=== PATIENT | female | born 1990 | race African-American/Black ===

== ENCOUNTER 2017-01-31 23:15 | Inpatient (IN) ==
[2017-01-31] MEDS ORDERED: ONDANSETRON 4 MG/2 ML VIAL IV PRN (23:32)
[2017-01-31] MEDS ORDERED: MEPERIDINE 50 MG/1 ML VIAL IV PRN (23:32)
[2017-01-31] MEDS ORDERED: MAGNESIUM SULF RIDER 100 ML IV ONE ×2 (23:34→23:37)
[2017-01-31] MEDS ORDERED: hydrALAZINE 20 MG/1 ML VIAL IV ONE ×2 (23:34→23:45)
[2017-01-31] MEDS: LACTATED RINGERS 1,000 ML IV SCH (23:42)
[2017-01-31] MEDS ORDERED: MAGNESIUM SULF DRIP 40 GM/1,000 ML ML IV SCH (23:45)
[2017-02-01 00:04] LABS: Basophils % 0.2 % (0.0-0.8); Eosinophils % 0.3 % (0.00-10.9); Hematocrit 28.1 VOL% (35.7-47.0); Hemoglobin 9.2 GM/DL (12.0-16.0); Immature Granulocytes % 2.4 %; Immature Granulocytes Absolute 0.26 #; Lymphocytes # 1.5 10*3/uL (1.4-4.0); Lymphocytes % 13.7 % (21.3-54.2); Mean Corpuscular HGB Conc 32.7 GM/DL (32-36); Mean Corpuscular Hemoglobin 27 PG (27-34); Mean Corpuscular Volume 83.4 FL (87-102); Monocytes % 9.5 % (1.7-12.7); NRBC # 0.05 10*3/uL; Neutrophils % 73.9 % (38.7-73.9); Platelet Count 154 T/CUMM (130-400); Red Blood Count 3.37 MC/CUMM (3.8-5.5); White Blood Count 10.8 T/CUMM (4-12)
[2017-02-01 00:15] LABS: INR 0.9; PT Patient Result 9.5 SECS; Partial Thromboplastin Time 27.1 SECS (0-40)
[2017-02-01 00:50] LABS: Albumin 2.5 G/DL (3.4-5.0); Bilirubin,Total 0.8 MG/DL (0.2-1.0); Calcium 8.2 MG/DL (8.5-10.1); Osmolality,Calculated 274.5 MOS/KG (273-304); Potassium 3.6 MMOL/L (3.5-5.1); Total Protein 5.9 G/DL (6.4-8.3); Uric Acid 3.9 MG/DL (2.6-6.0)
[2017-02-01] MEDS ORDERED: hydrALAZINE 20 MG/1 ML VIAL IV ONE (01:05)
[2017-02-01 01:09] LABS: Apearance,Urine CLEAR (Clear); Bilirubin,Urine Negative (Negative); Blood, Urine Negative (Negative); Glucose,Urine (UA) Negative (Negative); Ketones,Urine 20 mg/dL (Negative); Mucus,Urine Occasional /LPF (Occasional); Nitrite,Urine Negative (Negative); Protein,Urine 100 MG/DL; Squamous Epithelial Cell,Urine Occasional /HPF (0-10); Urine Color Yellow (Yellow); Urine Specific Gravity 1.009 (1.001-1.035); Urine Urobilinogen < 2.0 EU/DL (0.2-1.0); WBC,Urine <1 /HPF (0-6)
[2017-02-01 02:08] LABS: Barbiturates Screen,Urine Negative (Negative); Benzodiazepines Screen,Urine Negative (Negative); Cannabinoid Screen,Urine Negative (Negative); Opiate Screen,Urine Negative (Negative); Phencyclidine Screen,Urine Negative (Negative)
[2017-02-01] MEDS ORDERED: ACETAMINOPHEN 325 MG TABLET PO ONE (05:56)
[2017-02-01] MEDS ORDERED: CLINDAMYCIN INJ 900 MG in PREMIX 1 EACH IV ONE (07:34)
[2017-02-01] MEDS ORDERED: FAMOTIDINE 20 MG/2 ML VIAL IV ONE (07:34)
[2017-02-01] MEDS ORDERED: CITRIC ACID/SODIUM CITRATE 30 ML UDCUP PO ONE (07:34)
[2017-02-01] MEDS ORDERED: OXYTOCIN 10 UNIT/ML VIAL IM PRN (07:36)
[2017-02-01] MEDS ORDERED: OXYTOCIN/LR 30 UNIT/1,000 ML BAG IV PRN (07:36)
[2017-02-01 08:00] LABS: Basophils % 0.1 % (0.0-0.8); Eosinophils % 0.2 % (0.00-10.9); Hematocrit 29.1 VOL% (35.7-47.0); Hemoglobin 9.5 GM/DL (12.0-16.0); Immature Granulocytes % 3.9 %; Immature Granulocytes Absolute 0.43 #; Lymphocytes # 1.4 10*3/uL (1.4-4.0); Lymphocytes % 12.7 % (21.3-54.2); Mean Corpuscular HGB Conc 32.6 GM/DL (32-36); Mean Corpuscular Hemoglobin 27 PG (27-34); Mean Corpuscular Volume 82.9 FL (87-102); Mean Platelet Volume 11.1 FL (9.6-12.0); Monocytes # 0.8 10*3/uL (0.11-0.8); Monocytes % 7.1 % (1.7-12.7); NRBC # 0.03 10*3/uL; Neutrophils # 8.4 10*3/uL (1.4-7.4); Platelet Count 152 T/CUMM (130-400); Red Blood Count 3.51 MC/CUMM (3.8-5.5); Red Cell Distribution Width 14.2 % (9.3-17.3); White Blood Count 11.1 T/CUMM (4-12)
[2017-02-01 08:10] LABS: INR 0.9; PT Patient Result 9.4 SECS
[2017-02-01 08:31] LABS: Albumin 2.5 G/DL (3.4-5.0); Bilirubin,Total 0.8 MG/DL (0.2-1.0); Calcium 7.2 MG/DL (8.5-10.1); Osmolality,Calculated 273.5 MOS/KG (273-304); Potassium 3.6 MMOL/L (3.5-5.1); Total Protein 5.9 G/DL (6.4-8.3)
[2017-02-01] MEDS ORDERED: diphenhydrAMINE 50 MG/1 ML VIAL ONE (10:01)
[2017-02-01] MEDS ORDERED: fentaNYL 100 MCG/2 ML VIAL ONE (10:11)
[2017-02-01] MEDS ORDERED: MORPHINE 10 MG/10 ML VIAL ONE (10:12)
--- NOTE | 2017-02-01 10:15 | Anesthesia Post-Op ---
Anesthesia Post OP - Post Ansesthetic Evaluation Patient seen in post op: Yes Resp: within normal limits CV: within normal limits Mental: within normal limits Temp: within normal limits [id number]: within normal limits Nausea and Vomiting: within normal limits Pain: within normal limits Other:: pt itching , prior to leaving OR, given phenergan 25 mg iv slowly, after 10 minutes benadryl 50mg iv
[2017-02-01 10:23] LABS: Apearance,Urine CLEAR (Clear); Bacteria,Urine Occasional /HPF (Few); Bilirubin,Urine Negative (Negative); Blood, Urine Negative (Negative); Glucose,Urine (UA) Negative (Negative); Hyaline Casts,Urine 1 /LPF (0-3); Ketones,Urine 80 mg/dL (Negative); Mucus,Urine Occasional /LPF (Occasional); Nitrite,Urine Negative (Negative); Protein,Urine 100 MG/DL; RBC,Urine 1 /HPF (0-4); Squamous Epithelial Cell,Urine Occasional /HPF (0-10); Urine Color Yellow (Yellow); Urine Specific Gravity 1.021 (1.001-1.035); Urine Urobilinogen < 2.0 EU/DL (0.2-1.0); WBC,Urine 1 /HPF (0-6)
[2017-02-01 10:25] LABS: Cord Arterial Blood HCO3 19.5 MMOL/L
[2017-02-01] MEDS ORDERED: BUTORPHANOL 1 MG/ML VIAL IV ONE (10:27)
[2017-02-01 10:29] LABS: Cord Venous Blood PCO2 46.2 MMHG; Cord Venous Blood PO2 31.3
--- NOTE | 2017-02-01 10:33 | OB/GYN History & Physical ---
History of Present Illness Chief complaint: Severe preeclampsia, EDC is 03/02/2017 History of present illness: Ms. Wood is a 26 year old female Patient admitted with blood pressures 170s over 110, headaches, right upper quadrant pain, severe pelvic pain and discomfort. Light of these findings patient was initially started on the IV magnesium sulfate, received IV Apresoline, and IV fluids and also analgesic. Patient blood pressure still remain slightly elevated throughout the evening so this a.m. she was prepared for primary section secondary to severe preeclampsia. Fetus has been active, patient states the possibility of ruptured membranes. Small amount of fluid was noted to be leaking as well as patient was 2 cm dilated. The risks were thoroughly discussed regarding the need for a primary section she is in full agreement she also desired to have her tube ligated as well. Home Medications Medication Instructions Recorded Confirmed Type Multivitamin () [ 1 tablet PO DAILY 10/17/16 02/01/17 History Vitamin] Methyldopa [Aldomet] 1 tablet PO TID 01/13/17 02/01/17 History Allergies Allergy/AdvReac Type Severity Reaction Status Date / Time Penicillins Allergy Severe Swelling Verified 01/13/17 14:19 of Lip/Tongue/Throat Medical,Surgical,& Family Hx - Medical History Cardio: History of: Hypertension Neurology: History of: Seizures Genitourinary: History of: Recurring Urinary Tract Infections Reproductive: No history of: Ectopic , Complication - Surgical History Reproductive Surgeries: Patient denies;: Section - Family History Family History: Reports;: Family Diabetes (MGM), Family Heart Disease (MOM), Family Hypertension (MOM, SISTER) Denies;: Family Anesthesia Reaction, Family Cancer, Family Hematology, Family Psychiatric Problems, Family Stroke, Additional Family History - Social History Smoking Status: Never smoker Frequency of Alcohol Use: None Type of Drug Use: None 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 - Constitutional Vitals: Vital Signs Temp Pulse Resp BP BP Pulse Ox 02/01/17 08:00 97.5 F L 101 H 24 135/100 135/100 02/01/17 04:00 97.0 F L 101 H 20 142/79 100 02/01/17 00:00 97.8 F 108 H 20 153/104 General appearance: mild distress - Antepartum / Post Antepartum Exam Cervix - Dilatation: 2 cm - Head Head exam: Present: normal inspection - Eye Eye exam: Present: other (Periorbital edema) Pupils: Present: ELVER - ENT ENT exam: Present: normal exam - Neck Neck exam: Present: normal inspection - Respiratory Respiratory exam: Present: clear to auscultation bilaterally - Breast Breasts: as per HPI Menstruation: as per HPI - Cardiovascular Cardiovascular exam: Present: regular rate and rhythm - GI/Abdominal GI/Abdominal exam: Present: normal bowel sounds, soft, other (Palpable uterine contractions) - Extremities Exam Extremities exam: Present: edema - Back Exam Back exam: Present: normal inspection - Neurological Exam Neurological exam: Present: alert, oriented X3 - Psychiatric Psychiatric exam: Present: agitated - Skin Skin exam: Present: normal color, other (Generalized edema) Assessment and Plan (1) Prematurity of fetus Status: Acute Current Visit: Yes (2) Severe pre-eclampsia Status: Acute Assessment and plan: Primary section and bilateral tubal ligation secondary to severe preeclampsia Current Visit: Yes Results - Labs CBC & BMP: 02/01/17 07:53 02/01/17 07:53
--- NOTE | 2017-02-01 10:37 | Operative Note ---
Date of procedure: 02/01/17 Procedure: Preoperative diagnosis: Severe preeclampsia, prematurity, elective sterilization Postoperative diagnosis: Same Anesthesia:[] Regional Estimated blood loss: [] Less than 400 Surgeon: Dr. Esquivel Findings: [] Delivery of a female infant delivery time was at 0938, weight was 5 lbs. 14 oz., Apgars was 9 at 1 minute 9 at 5 minutes, Complications: None Procedure: Low transverse section bilateral tubal ligation The patient was taken to the operating suite heart tones were obtained prior to and after regional anesthesia was obtained. She was placed in supine position her abdomen was prepped and draped in usual manner for major abdominal surgery. Through an abdominal incision the skin, subcutaneous, fascial layer and peritoneal the abdomen was entered. The bladder flap was created and a low transverse incision was made.. Fluid was clear and normal amount X, Apgars, the placenta was delivered and sent to lab for further evaluation. Injected with intrauterine Pitocin. The first layer of the uterus was closed with #1 Vicryl in a continuous locking manner. Close to imbricate the first layer with #1 Vicryl. The peritoneum was approximated with #2-0 Vicryl.[Fallopian tubes were grasped with a [place] clamp. Into the avascular regions of the mesosalpinx perforated. The proximal distal end of the tube was ligated. Segment in between was excised. The cut it edges were then cauterized.] All the last sponges and instruments were accounted for -2.) #2-0 Vicryl. Fascia was approximated with #0-0 Maxon.. The skin was approximated with antonio. She tolerated procedure well and was taken to recovery room in stable condition. Surgeon / Physician: Edward Esquivel Results - Labs CBC & BMP: 02/01/17 07:53 02/01/17 07:53 Discharge Plan - Discharge Medications No Action Methyldopa [Aldomet] 1 tablet PO TID Multivitamin () [ Vitamin] 1 tablet PO DAILY - Follow Up or Referral - Forms/Instructions
[2017-02-01] MEDS ORDERED: ONDANSETRON 4 MG/2 ML VIAL IV PRN (10:39)
[2017-02-01] MEDS ORDERED: RHO(D) IMMUNE GLOBULIN 300 MCG SYRINGE IM ONE (10:39)
[2017-02-01] MEDS ORDERED: SIMETHICONE CHEW 80 MG TABLET PO PRN (10:39)
[2017-02-01] MEDS ORDERED: ACETAMINOPHEN 325 MG TABLET PO PRN (10:39)
[2017-02-01] MEDS ORDERED: OXYTOCIN/LR 20 UNIT/1,000 ML BAG IV ONE (10:39)
[2017-02-01] MEDS ORDERED: PHENYLEPHRINE 1 MG/10 ML SYRINGE IV ONE (10:47)
[2017-02-01] MEDS ORDERED: ONDANSETRON 4 MG/2 ML VIAL ONE (10:47)
[2017-02-01] MEDS ORDERED: PROMETHAZINE 25 MG/1 ML VIAL ONE (10:47)
[2017-02-01] MEDS: hydrALAZINE 25 MG TABLET PO PRN ×2 (13:02→21:29)
[2017-02-01] MEDS: LACTATED RINGERS 1,000 ML IV SCH ×3 (13:56→20:41)
[2017-02-01] MEDS: hydrALAZINE 20 MG/1 ML VIAL IV PRN ×2 (15:49→15:59)
[2017-02-01] MEDS: FUROSEMIDE 40 MG/4 ML VIAL IV SCH ×2 (15:50→21:27)
[2017-02-01] MEDS: DOCUSATE SODIUM 100 MG CAPSULE PO SCH (21:42)
[2017-02-02] MEDS: FUROSEMIDE 40 MG/4 ML VIAL IV SCH (03:35)
[2017-02-02] MEDS: IBUPROFEN 800 MG TABLET PO PRN ×2 (06:21→15:24)
[2017-02-02 07:14] LABS: Basophils % 0.2 % (0.0-0.8); Eosinophils % 0.2 % (0.00-10.9); Hematocrit 26.4 VOL% (35.7-47.0); Hemoglobin 8.7 GM/DL (12.0-16.0); Immature Granulocytes % 1.5 %; Immature Granulocytes Absolute 0.16 #; Lymphocytes # 1.2 10*3/uL (1.4-4.0); Lymphocytes % 11.2 % (21.3-54.2); Mean Corpuscular Hemoglobin 27 PG (27-34); Mean Corpuscular Volume 82.5 FL (87-102); Mean Platelet Volume 10.7 FL (9.6-12.0); Monocytes # 0.9 10*3/uL (0.11-0.8); Monocytes % 8.2 % (1.7-12.7); Neutrophils # 8.4 10*3/uL (1.4-7.4); Neutrophils % 78.7 % (38.7-73.9); Platelet Count 141 T/CUMM (130-400); Red Cell Distribution Width 14.5 % (9.3-17.3); White Blood Count 10.7 T/CUMM (4-12)
[2017-02-02] MEDS: MULTIVITAMIN (PRENATAL) TABLET PO SCH (08:48)
[2017-02-02] MEDS: MAGNESIUM HYDROXIDE SUSP 30 ML UDCUP PO PRN ×2 (08:48→21:18)
[2017-02-02] MEDS: DOCUSATE SODIUM 100 MG CAPSULE PO SCH ×2 (08:48→21:17)
--- NOTE | 2017-02-02 11:47 | Progress Note ---
Assessment and Plan (1) Prematurity of fetus Status: Acute Current Visit: Yes (2) Severe pre-eclampsia Status: Acute Assessment and plan: Primary section and bilateral tubal ligation secondary to severe preeclampsia Current Visit: Yes Family Medicine PN Sub Interval history: Postop day #1 Status post Lungs are clear cardiac exam benign abdomen soft Incision sites intact Extremities well with no limits neurologic grossly intact Assessment plan continue with present therapy possible discharge in a.m. Exam (Progress Note) - Constitutional Vitals: Period Temp Pulse Resp BP Sys/Campos Pulse Ox Last 24 Hr 97.4 F-99.5 F 74-110 18-20 111-146/70-91 97-100 Results - Labs CBC & BMP: 02/02/17 07:01 02/01/17 07:53 Quality Measures - VTE Contraindication to Pharmacological VTE Prophylaxis: Clinical assessment deems Pt at low risk, no prophalaxis needed Specialty Discharge - Follow Up or Referrals Follow up with: Edward Esquivel MD [Physician] - 02/16/17 10:00 am
[2017-02-03] MEDS ORDERED: diphenhydrAMINE CAP 25 MG CAPSULE PO PRN (00:22)
[2017-02-03] MEDS: hydrALAZINE 25 MG TABLET PO PRN (03:27)
--- NOTE | 2017-02-03 04:47 | Discharge Summary ---
Hospital Course - Hospital Course Hospital Course: Postop day #2 Status post section secondary to severe preeclampsia Patient is admitted with elevation of her blood pressure, was placed on IV magnesium sulfate Apresoline and subsequently prepared for primary section. She underwent a section and tubal ligation. Her postoperative course is unremarkable. She received iron therapy for low blood count however she is extremely stable. We will discharge this patient follow- up our office in approximately 2 weeks. Diagnosis - Discharge Diagnosis (1) Prematurity of fetus Status: Acute (2) Severe pre-eclampsia Status: Acute Specialty Discharge - Follow Up or Referrals Follow up with: Edward Esquivel MD [Physician] - 02/16/17 10:00 am Discharge Plan - Discharge Data Condition at Discharge: Stable Discharge Diet: advance to your usual diet Activity: resume usual activities as tolerated, increase activity as tolerated Hygiene: may shower Contact your physician if you experience:: fever over 101, Bleeding - Discharge Medications New Ibuprofen Tab [Motrin Tab] 800 mg PO Q8H PRN #30 tablet PRN Reason: Pain Severe (8-10) HYDROcodone/ACETAMIN 5-325 [Zion 5-325] 1 tablet PO Q4H PRN #30 tablet PRN Reason: Pain Moderate (4-7) No Action Methyldopa [Aldomet] 1 tablet PO TID Multivitamin () [ Vitamin] 1 tablet PO DAILY - Follow Up or Referral Follow Up: Edward Esquivel MD [Physician] - 02/16/17 10:00 am - Forms/Instructions Exam - Constitutional Vitals: Period Temp Pulse Resp BP Sys/Campos Pulse Ox Last 24 Hr 97.8 F-99.0 F 94-114 16-20 111-145/70-92 97-100 Discharge Results Labs on day of discharge: Labs from last 24 hours 02/02/17 07:01 WBC 10.7 RBC 3.20 L Hgb 8.7 L Hct 26.4 L MCV 82.5 L MCH 27 MCHC 33.0 RDW 14.5 Plt Count 141 MPV 10.7 Neut % (Auto) 78.7 H Lymph % (Auto) 11.2 L Nicholas % (Auto) 8.2 Eos % (Auto) 0.2 Baso % (Auto) 0.2 Neut # (Auto) 8.4 H Lymph # (Auto) 1.2 L Nicholas # (Auto) 0.9 H Eos # (Auto) 0.0 Baso # (Auto) 0.0 Immature Gran % 1.5 Nucleated RBC % 0.0 Immature Gran # 0.16 Nucleated RBCs # 0.00 DS: Provider Date of admission: 01/31/17 23:33 Primary care physician: . No PCP Attending physician on admission: Edward Esquivel MD Consults: 01/31/17 23:33 Consult to Anesthesiology [CONS] Routine Consulting Provider: Reason for Anesthesiology: Epidural Consult Comment: Epidural for pain managment 02/01/17 10:39 Consult to Credit Union Field Examiner [CONS] Routine Consult Credit Union Field Examiner: Breast Feeding Discharging clinician: Edward Esquivel MD
[2017-02-03] MEDS: BISACODYL 10 MG SUPP RECTAL PRN ×2 (04:56→06:50)
[2017-02-03] MEDS ORDERED: MEPERIDINE 50 MG/1 ML VIAL IV ONE ×2 (05:02)
[2017-02-03] MEDS ORDERED: MEPERIDINE 50 MG/1 ML VIAL IM ONE (05:30)
[2017-02-03] MEDS ORDERED: MAGNESIUM CITRATE 300 ML BOTTLE PO ONE (07:55)
[2017-02-03 08:36] VITALS: BP 135/88
[2017-02-03] MEDS: DOCUSATE SODIUM 100 MG CAPSULE PO SCH (09:03)
[2017-02-03] MEDS: MULTIVITAMIN (PRENATAL) TABLET PO SCH (09:03)
[2017-02-03] MEDS ORDERED: DIPH/TET/ACEL PERT BOOSTER VACCINE 0.5 ML VIAL IM ONE (13:28)
--- NOTE | 2017-02-04 11:19 | Pathology Report from [facility] ---
[facility] [place] : [id number] PATIENT NAME : Francie Wood ORDERING DR : ALEXUS CHAVEZ MD CLINICAL HX: IUP @ 35.6 wks, severe preeclampsia, primary C/S, desires sterilization POST-OP DX: Same SPECIMEN INFO: #1 Placenta #2 RT fallopian tube segment #3 LT fallopian tube segment GROSS DESCRIPTION: Received fresh in three parts labeled:#1 FRANCIE WOOD & PLACENTA is a 304 gm placenta measuring 14.5 x 15.5 x 1.8 cm. The membranes are pink vazquez and translucent. The umbilical cord measures 12.0 cm, contains three vessels and is centrally inserted. The surface is blue hoover and intact. The maternal surface is hemorrhagic and intact with no abnormalities appreciated upon sectioning. Sections submitted 1A- membranes and cord,1 B- and maternal surfaces.#2 FRANCIE WOOD R TUBE SEGMENT is a 1.8 x 0.6 cm unfimbriated fallopian tube segment. Public Information Director section submitted in #2.#3 FRANCIE WOOD L TUBE SEGMENT is a 2.2 x 0.5 cm unfimbriated fallopian tube segment. Public Information Director section submitted in #3. DIAGNOSIS FOR FRANCIE WOOD: #1 Three vessel umbilical cord. Unremarkable placental membranes. Third trimester chorionic villi with subchorionic fibrin deposition and intravillous arterial wall thickening c/w hypertensive arteriopathy.#2 Completely transected fallopian tube, right.#3 Completely transected fallopian tube, left. COLLECTED DATE: 02/02/2017 [facility] REPORT DATE: 02/04/2017 ELECTRONICALLY SIGNED BY: Deni Art M.D. 02/04/2017 - 8:37:28 [facility]ITAL[facility]
--- NOTE | 2017-02-06 03:10 | Pathology Report from [facility] ---
[facility] [place] # : [id number] PATIENT NAME : Francie Wood ORDERING DR : ALEXUS CHAVEZ MD CLINICAL HX: IUP @ 35.6 wks, severe preeclampsia, primary C/S, desires sterilization POST-OP DX: Same SPECIMEN INFO: #1 Placenta #2 RT fallopian tube segment #3 LT fallopian tube segment GROSS DESCRIPTION: Received fresh in three parts labeled:#1 FRANCIE WOOD & PLACENTA is a 304 gm placenta measuring 14.5 x 15.5 x 1.8 cm. The membranes are pink vazquez and translucent. The umbilical cord measures 12.0 cm, contains three vessels and is centrally inserted. The surface is blue hoover and intact. The maternal surface is hemorrhagic and intact with no abnormalities appreciated upon sectioning. Sections submitted 1A- membranes and cord,1 B- and maternal surfaces.#2 FRANCIE WOOD R TUBE SEGMENT is a 1.8 x 0.6 cm unfimbriated fallopian tube segment. Access Control Officer section submitted in #2.#3 FRANCIE WOOD L TUBE SEGMENT is a 2.2 x 0.5 cm unfimbriated fallopian tube segment. Access Control Officer section submitted in #3. DIAGNOSIS FOR FRANCIE WOOD: #1 Three vessel umbilical cord. Unremarkable placental membranes. Third trimester chorionic villi with subchorionic fibrin deposition and intravillous arterial wall thickening c/w hypertensive arteriopathy.#2 Completely transected fallopian tube, right.#3 Completely transected fallopian tube, left. COLLECTED DATE: 02/02/2017 [facility] REPORT DATE: 02/04/2017 ELECTRONICALLY SIGNED BY: Deni Art M.D. 02/04/2017 - 8:37:28 [facility]ITALVanessa
== END 2017-02-03 14:42 | disposition home or self-care (01) | DRG 540 ==
LOC: N.LDOUT 23:15 → N.LD 23:17 → N.OB 02-01 20:30
PROVIDERS: ADMIT Obstetrics & Gynecology; ATTEND Obstetrics & Gynecology